=== PATIENT | female | born 1985 | race Caucasian/White ===

== ENCOUNTER → 2019-06-17 | Outpatient (CLI) | payer OTHER ==
--- NOTE | 2019-06-19 13:36 | US ---
EXAMINATION TYPE: US pelvic complete DATE OF EXAM: 06/17/2019 COMPARISON: NONE CLINICAL HISTORY: 34-year-old female N94.6 DYSMENORRHEA. Patient states having generalized cramping. TECHNIQUE: Transabdominal sonographic images of the pelvis were acquired. Date of LMP: 05/17/2019, FINDINGS: EXAM MEASUREMENTS: Uterus: 10.4 x 6.2 x 3.7 cm Endometrial Stripe: 0.8 cm Right Ovary: 2.6 x 1.9 x 1.4 cm Left Ovary: 3.1 x 1.5 x 1.3 cm 1. Uterus: Anteverted but retroflexed. No focal masses. 2. Endometrium: wnl 3. Right Ovary: wnl 4. Left Ovary: wnl 5. Bilateral Adnexa: No evident abnormality. 6. Posterior cul-de-sac: no free fluid 7. Cervix: wnl IMPRESSION: No specific abnormality of the pelvis on transabdominal scanning.
== END | disposition home or self-care (01) ==
LOC: RADUSWWP 16:09
PROVIDERS: ATTEND Family Medicine
DX: N94.6 Dysmenorrhea, unspecified (principal)
CPT/HCPCS: 76856

== ENCOUNTER 2021-07-05 00:27 | Emergency (ER) | payer OTHER ==
[2021-07-05 00:50] VITALS: BP 124/80; PULSE 80; RESP 20; TEMP 98.8
[2021-07-05] MEDS ORDERED: MAGNESIUM CITRATE 296 ML BOTTLE PO ONE (02:24)
[2021-07-05] MEDS ORDERED: SENNOSIDES-DOCUSATE SODIUM 1 EACH TAB PO STA (02:24)
[2021-07-05] MEDS ORDERED: GLYCERIN ADULT SUPPOSITORY 1 EACH RECTAL STA (02:24)
--- NOTE | 2021-07-05 02:25 | ED ---
Abdominal Pain HPI - General Chief Complaint: Abdominal Pain Stated Complaint: constipated, light-headed Time Seen by Provider: 07/05/21 02:21 Source: patient, RN notes reviewed, old records reviewed Mode of arrival: ambulatory Limitations: no limitations - History of Present Illness Initial Comments: This is a 36-year-old female DF for evaluation today. Patient is complaining of abdominal pain abdominal pain for 2 weeks with she may have some episodes of constipation as well. Patient is without fever no nausea or vomiting. Patient has history of cholecystectomy and history of . Patient did have a bowel movement 2 days ago MD Complaint: abdominal pain -: week(s) Location: diffuse Radiation: none Migration to: no migration Severity: moderate Severity scale (1-10): 5 Quality: fullness Consistency: intermittent Improves With: nothing Worsens With: nothing Context: other (none) Associated Symptoms: nausea Treatments Prior to Arrival: other (none) - Related Data Allergies Allergy/AdvReac Type Severity Reaction Status Date / Time acetaminophen [From Tylenol] Allergy Nausea & Verified 07/05/21 00:50 Vomiting & Diarrhea ibuprofen [From Motrin] Allergy Nausea & Verified 07/05/21 00:50 Vomiting & Diarrhea Penicillins Allergy Rash/Hives Verified 07/05/21 00:50 Review of Systems ROS Statement: Those systems with pertinent positive or pertinent negative responses have been documented in the HPI. ROS Other: All systems not noted in ROS Statement are negative. Past Medical History Additional Past Medical History / Comment(s): migraines, gestational diabetic. preeclampsia History of Any Multi-Drug Resistant Organisms: None Reported Past Surgical History: Section, Cholecystectomy Additional Past Surgical History / Comment(s): eye cyst Past Psychological History: Anxiety, Depression Smoking Status: Vaper Past Alcohol Use History: Occasional Past Drug Use History: None Reported General Exam Limitations: no limitations General appearance: alert, in no apparent distress Head exam: Present: atraumatic, normocephalic, normal inspection Eye exam: Present: normal appearance, PERRL, EOMI. Absent: scleral icterus, conjunctival injection, periorbital swelling ENT exam: Present: normal exam, mucous membranes moist Neck exam: Present: normal inspection. Absent: tenderness, meningismus, lymphadenopathy Respiratory exam: Present: normal lung sounds bilaterally. Absent: respiratory distress, wheezes, rales, rhonchi, stridor Cardiovascular Exam: Present: regular rate, normal rhythm, normal heart sounds. Absent: systolic murmur, diastolic murmur, rubs, gallop, clicks GI/Abdominal exam: Present: soft, tenderness, normal bowel sounds. Absent: distended, guarding, rebound, rigid Extremities exam: Present: normal inspection, full ROM, normal capillary refill. Absent: tenderness, pedal edema, joint swelling, calf tenderness Back exam: Present: normal inspection Neurological exam: Present: alert, oriented X3, CN II-XII intact Psychiatric exam: Present: normal affect, normal mood Skin exam: Present: warm, dry, intact, normal color. Absent: rash Course Vital Signs 07/05/21 00:47 Temperature 98.8 F Pulse Rate 80 Respiratory 20 Rate Blood Pressure 124/80 O2 Sat by Pulse 100 Oximetry - Reevaluation(s) Reevaluation #1: Medical record is reviewed Symptoms improved here in the ER Patient informed results and questions answered Medical Decision Making - Medical Decision Making 36 female to the emergency department for evaluation for abdominal pain positive for constipation. Patient will be placed on bowel regimen can be discharged home - Lab Data Lab Results 07/05/21 07/05/21 Range/Units 02:38 02:38 Urine Color Light Yellow Urine Appearance Clear (Clear) Urine pH 5.5 (5.0-8.0) Ur Specific [place] 1.009 (1.001-1.035) Urine Protein Negative (Negative) Urine Glucose (UA) Negative (Negative) Urine Ketones 1+ H (Negative) Urine Blood Trace H (Negative) Urine Nitrite Negative (Negative) Urine Bilirubin Negative (Negative) Urine Urobilinogen <2.0 (<2.0) mg/dL Ur Leukocyte Esterase Negative (Negative) Urine RBC 1 (0-5) /hpf Urine WBC <1 (0-5) /hpf Ur Squamous Epith Cells <1 (0-4) /hpf Urine Bacteria Rare H (None) /hpf Urine Mucus Rare H (None) /hpf Urine HCG, Qual Not Detected (Not Detectd) - Radiology Data Radiology results: report reviewed (X-ray KUB shows increased stool burn), image reviewed Disposition Clinical Impression: Constipation, Abdominal pain Disposition: HOME SELF-CARE Condition: Good Instructions (If sedation given, give patient instructions): Constipation (ED), Abdominal Pain (ED) Is patient prescribed a controlled substance at d/c from ED?: No Referrals: Geronimo Ferro MD [Primary Care Provider] - 1-2 days
[2021-07-05 03:03] LABS: Appearance,Urine Clear (Clear); Bacteria,Urine Rare /hpf; Bilirubin,Urine Negative (Negative); Blood,Urine Trace (Negative); Color,Urine Light Yellow; Glucose,Urine (UA) Negative (Negative); Ketones,Urine 1+ (Negative); Leukocyte Esterase,Urine Negative (Negative); Mucus,Urine Rare /hpf; Nitrite,Urine Negative (Negative); PH, Urine 5.5 (5.0-8.0); Protein,Urine Negative (Negative); RBC,Urine 1 /hpf (0-5); Specific Gravity,Urine 1.009 (1.001-1.035); Squamous Epithelial Cell,Urine <1 /hpf (0-4); Urobilinogen,Urine <2.0 mg/dL (<2.0); WBC,Urine <1 /hpf (0-5)
--- NOTE | 2021-07-05 03:27 | XR ---
EXAMINATION TYPE: XR KUB DATE OF EXAM: 07/05/2021 COMPARISON: NONE HISTORY: Constipation TECHNIQUE: 2 views upright FINDINGS: There is no sign of intestinal obstruction or pneumoperitoneum. Fecal pattern is normal. Th ere is no sign of a mass. There are no pathologic calcifications. Lung bases are clear. IMPRESSION: Nonacute abdomen.
== END 2021-07-05 03:16 | disposition home or self-care (01) ==
LOC: EC 00:27
DX: K59.00 Constipation, unspecified (principal); F41.9 Anxiety disorder, unspecified; F32.A Depression, unspecified; F17.290 Nicotine dependence, other tobacco product, uncomplicated; Z88.0 Allergy status to penicillin; Z88.6 Allergy status to analgesic agent; Z90.49 Acquired absence of other specified parts of digestive tract
CPT/HCPCS: 74018; 81001; 81025; 99284

== ENCOUNTER → 2021-10-18 | Outpatient (CLI) | payer OTHER ==
--- NOTE | 2021-10-18 15:20 | US ---
EXAMINATION TYPE: US extremity nonvasc mass LT DATE OF EXAM: 10/18/2021 COMPARISON: NONE CLINICAL HISTORY: LLE R22.40 Swelling. bruising on left lateral upper thigh since Jul. No known injur y. Hyperechoic area seen right under superficial bruising, probable hematomas IMPRESSION: As above
== END | disposition home or self-care (01) ==
LOC: RADUSWWP 14:56
PROVIDERS: ATTEND Family Medicine
DX: R22.40 Localized swelling, mass and lump, unspecified lower limb (principal)

== ENCOUNTER → 2022-03-31 | Outpatient (CLI) | payer OTHER ==
[2022-03-31 10:53] LABS: Basophils % (A) 0 %; Eosinophils # (A) 0.1 k/uL (0-0.7); Eosinophils % (A) 2 %; HGB 11.8 gm/dL (11.4-16.0); Hypochromasia Moderate; Lymphocytes # (A) 1.2 k/uL (1.0-4.8); Lymphocytes % (A) 28 %; MCH 28.9 pg (25.0-35.0); MCHC 31.8 g/dL (31.0-37.0); MCV 90.9 fL (80.0-100.0); Monocytes # (A) 0.3 k/uL (0-1.0); Monocytes % (A) 7 %; Neutrophils # (A) 2.5 k/uL (1.3-7.7); Neutrophils % (A) 60 %; Platelet Count 186 k/uL (150-450); RBC 4.07 m/uL (3.80-5.40); WBC 4.2 k/uL (3.8-10.6)
[2022-03-31 11:06] LABS: ALT 449 U/L (4-34); AST 312 U/L (14-36); African American GFR (CKD) >90 (>60 ml/min/1.73 sqM); Albumin 4.7 g/dL (3.5-5.0); Albumin/Globulin Ratio 1.4; Alkaline Phosphatase 59 U/L (38-126); Amylase 66 U/L (30-110); Anion Gap 12 mmol/L; Blood Urea Nitrogen 9 mg/dL (7-17); Calcium 8.9 mg/dL (8.4-10.2); Carbon Dioxide 25 mmol/L (22-30); Chloride 102 mmol/L (98-107); Globulin 3.3 g/dL; Glucose 82 mg/dL (74-99); Lipase 154 U/L (23-300); Non-African American GFR(CKD) >90 (>60 ml/min/1.73 sqM); Potassium 4.3 mmol/L (3.5-5.1); Sodium 139 mmol/L (137-145); Total Bilirubin 0.6 mg/dL (0.2-1.3)
--- NOTE | 2022-03-31 12:24 | CT ---
EXAMINATION TYPE: CT abdomen pelvis w con DATE OF EXAM: 03/31/2022 HISTORY: Epigastric pain CT DLP: 881mGycm Automated Exposure Control for Dose Reduction was Utilized. CONTRAST: CT scan of the abdomen and pelvis is performed with oral and with IV Contrast, patient injected with 70 mL of Isovue 300. COMPARISON: None. FINDINGS: LUNG BASES: No significant abnormality is appreciated. LIVER/GB: Gallbladder not seen and presumed surgically absent. No biliary dilatation identified. PANCREAS: No significant abnormality is seen. SPLEEN: No significant abnormality is seen. ADRENALS: No significant abnormality is seen. KIDNEYS: Symmetric cortical medullary uptake and excretion without hydronephrosis seen bilaterally. BOWEL: Oral contrast reached level of the hepatic flexure. No suspicious small or large bowel dilatat ion. Normal-appearing appendix extends medially from the cecum. UTERUS/ADNEXA: Anteverted uterus. Right ovary has a 2.2 cm round peripheral rim hyperdense central h ypodense lesion suspicious for corpus luteal cyst from recent ovulation. LYMPH NODES: No greater than 1cm abdominal or pelvic lymph nodes are appreciated. OSSEOUS STRUCTURES: No significant abnormality is seen. OTHER: No significant additional abnormality is seen. IMPRESSION: No bowel obstruction. No significant acute finding is seen to account for patient's clini yuliya symptoms.
== END | disposition home or self-care (01) ==
LOC: RADCTMAIN 10:05
PROVIDERS: ATTEND Family Medicine
DX: R10.13 Epigastric pain (principal)
CPT/HCPCS: 80053; 82150; 83690; 85025; 74177; 36415; Q9967 ×2

== ENCOUNTER 2022-04-11 17:33 | Emergency (ER) | payer OTHER ==
[2022-04-11 18:34] VITALS: RESP 16
[2022-04-11] MEDS ORDERED: METOCLOPRAMIDE 5 MG/ML 2 ML VIAL IVP STA (21:16)
[2022-04-11] MEDS ORDERED: KETOROLAC 15 MG/ML 1 ML VIAL IVP STA (21:16)
[2022-04-11] MEDS ORDERED: DEXAMETHASONE SOD PHOSPHATE 10 MG/ML 1 ML VIAL IV STA (21:16)
[2022-04-11] MEDS ORDERED: SODIUM CHLORIDE 0.9% 1,000 ML IV STA (21:16)
[2022-04-11] MEDS ORDERED: ONDANSETRON 4 MG/2 ML VIAL IVP STA (21:16)
[2022-04-11] MEDS ORDERED: HYDROmorphone 0.5 MG/0.5 ML SYRINGE IVP STA (22:15)
[2022-04-11] MEDS ORDERED: diphenhydrAMINE 50 MG/ML 1 ML VIAL IVP STA (22:15)
--- NOTE | 2022-04-11 23:40 | ED ---
Headache HPI - General Chief Complaint: Headache Stated Complaint: migrane Time Seen by Provider: 04/11/22 21:16 Mode of arrival: ambulatory Limitations: no limitations - History of Present Illness Initial Comments: Patient is a 36-year-old female with past medical history of migraines who presents to the emergency department with chief complaint of migraine. It started on Thursday. States this migraine feels typical of her previous migraines. Took her migraine medication with no relief. She denies fever, chills, upper respiratory symptoms, chest pain, shortness breath. - Related Data Previous Rx's Medication Instructions Recorded Metoclopramide [Reglan] 10 mg PO BID #14 tab 04/11/22 Allergies Allergy/AdvReac Type Severity Reaction Status Date / Time acetaminophen [From Tylenol] Allergy Nausea & Verified 04/11/22 18:34 Vomiting & Diarrhea ibuprofen [From Motrin] Allergy Nausea & Verified 04/11/22 18:34 Vomiting & Diarrhea Penicillins Allergy Rash/Hives Verified 04/11/22 18:34 Review of Systems ROS Statement: Those systems with pertinent positive or pertinent negative responses have been documented in the HPI. ROS Other: All systems not noted in ROS Statement are negative. Past Medical History Past Medical History: Thyroid Disorder Additional Past Medical History / Comment(s): migraines, gestational diabetic. preeclampsia History of Any Multi-Drug Resistant Organisms: None Reported Past Surgical History: Section, Cholecystectomy Additional Past Surgical History / Comment(s): eye cyst Past Psychological History: Anxiety, Depression Smoking Status: Vaper Past Alcohol Use History: Occasional Past Drug Use History: None Reported General Exam Limitations: no limitations General appearance: alert, in no apparent distress Head exam: Present: atraumatic, normocephalic, normal inspection Eye exam: Present: normal appearance, PERRL, EOMI. Absent: scleral icterus, conjunctival injection, periorbital swelling Respiratory exam: Present: normal lung sounds bilaterally. Absent: respiratory distress, wheezes, rales, rhonchi, stridor Cardiovascular Exam: Present: regular rate, normal rhythm, normal heart sounds. Absent: systolic murmur, diastolic murmur, rubs, gallop, clicks Neurological exam: Present: alert, oriented X3, CN II-XII intact Psychiatric exam: Present: normal affect, normal mood Skin exam: Present: warm, dry, intact, normal color. Absent: rash Course Vital Signs 04/11/22 18:32 Temperature 97.9 F Pulse Rate 69 Respiratory 16 Rate Blood Pressure 109/73 O2 Sat by Pulse 100 Oximetry Medical Decision Making - Medical Decision Making This is a 36-year-old female with migraine. Patient migraine cocktail with little relief. She was then given a dose of Dilaudid and tested for COVID-19. COVID-19 is detected. On reevaluation patient is feeling better. Results discussed with patient who will be discharged home with reglan. Dr. Guerra is my attending. - Lab Data Lab Results 04/11/22 Range/Units 22:31 Coronavirus (PCR) Detected A (Not Detectd) Disposition Clinical Impression: Migraine, COVID-19 Disposition: HOME SELF-CARE Condition: Good Instructions (If sedation given, give patient instructions): Coronavirus Disease 2019 (COVID-19), Migraine Headache (ED) Additional Instructions: Follow up with neurologist and primary care provider in one to 2 days. Return to the emergency department if you experience new, concerning, or worsening symptoms. Prescriptions: Metoclopramide [Reglan] 10 mg PO BID #14 tab Is patient prescribed a controlled substance at d/c from ED?: No Referrals: Ilene Berrios [Primary Care Provider] - 1-2 days
[2022-04-11 23:58] VITALS: BP 96/61; PULSE 64; TEMP 98.4
== END 2022-04-11 23:58 | disposition home or self-care (01) ==
LOC: EC 17:33
DX: U07.1 COVID-19 (principal); E07.9 Disorder of thyroid, unspecified; F41.9 Anxiety disorder, unspecified; F32.A Depression, unspecified; F17.290 Nicotine dependence, other tobacco product, uncomplicated; Z88.6 Allergy status to analgesic agent; Z88.0 Allergy status to penicillin
CPT/HCPCS: 87635; 99284; 96374; 96375 ×5; 96361; J1200; J1100; J2765; J2405; J1885; J1170

== ENCOUNTER → 2023-04-10 | Outpatient (CLI) | payer OTHER ==
--- NOTE | 2023-04-10 14:57 | US ---
EXAMINATION TYPE: US pelvis complete transvag DATE OF EXAM: 04/10/2023 COMPARISON: Pelvic ultrasound 06/17/2019 CLINICAL INDICATION: Female, 37 years old with history of R10.2 PELVIC AND PERINEAL PAIN; Pelvic pain , heavy menses, TECHNIQUE: Transvaginal (TV) and Transabdominal (TA) . Transabdominal sonographic images of the pel vis were acquired. Transvaginal sonographic images were medically necessary to better assess the fol lowing anatomy: right ovary Date of LMP: 03/28/23 EXAM MEASUREMENTS: Uterus: 12.0 x 4.0 x 5.9 cm Endometrial Stripe: 0.6 cm Right Ovary: 4.4 x 1.8 x 2.0 cm Left Ovary: 3.4 x 2.2 x 1.7 cm 1. Uterus: Anteverted heterogeneous 2. Endometrium: wnl 3. Right Ovary: complex area = 2.3 x 1.9 x 2.2cm 4. Left Ovary: follicles noted 5. Bilateral Adnexa: prominent vessels right adnexa 6. Posterior cul-de-sac: wnl Heterogenous uterus. Endometrium is within normal limits. Left ovary is unremarkable with follicles a nd measured. Complex cystic region within the right ovary measuring up to 2.3 cm. Prominent vessels w ithin the right adnexa. No free fluid. IMPRESSION: 1. Complex cystic 2.3 cm region within the right ovary. Favored to represent a hemorrhagic cyst. Fol low-up pelvic ultrasound in 6-12 weeks is recommended to ensure resolution. 2. Endometrium is within normal limits.
== END | disposition home or self-care (01) ==
LOC: RADUSWWP 13:34
PROVIDERS: ATTEND Obstetrics & Gynecology
DX: R10.2 Pelvic and perineal pain (principal); D21.9 Benign neoplasm of connective and other soft tissue, unspecified; N83.8 Other noninflammatory disorders of ovary, fallopian tube and broad ligament
CPT/HCPCS: 76830; 76856

== ENCOUNTER 2023-04-21 13:00 | Emergency (ER) | payer OTHER ==
[2023-04-21] MEDS ORDERED: SODIUM CHLORIDE 0.9% 1,000 ML IV STA (13:22)
[2023-04-21] MEDS ORDERED: METOCLOPRAMIDE 5 MG/ML 2 ML VIAL IVP STA (13:22)
[2023-04-21] MEDS ORDERED: diphenhydrAMINE 50 MG/ML 1 ML VIAL IVP STA (13:22)
[2023-04-21] MEDS ORDERED: DEXAMETHASONE SOD PHOSPHATE 10 MG/ML 1 ML VIAL IVP STA (13:22)
[2023-04-21] MEDS ORDERED: KETOROLAC 15 MG/ML 1 ML VIAL IVP STA (13:23)
--- NOTE | 2023-04-21 13:35 | ED ---
Headache HPI - General Chief Complaint: Headache Stated Complaint: Migraine Time Seen by Provider: 04/21/23 13:07 Source: patient, RN notes reviewed Mode of arrival: ambulatory Limitations: no limitations - History of Present Illness Initial Comments: This is a 37-year-old female who presents to the emergency department for a migraine. Patient has a long-standing history of migraines and states that she has tried multiple medications with no relief. She usually tries to sleep them off, however she's had a persistent migraine over the last 4 days. She would not describe this as the worst headache of her life and states that it is simply more consistent with one of her more severe migraines. Reports minor photosensitivity. Denies any nausea or vomiting. This involves most of her head. MD Complaint: headache, "migraine" - Related Data Previous Rx's Medication Instructions Recorded Metoclopramide [Reglan] 10 mg PO BID #14 tab 04/11/22 Ketorolac [Toradol] 10 mg PO Q6HR PRN #15 tab 04/21/23 Ondansetron Odt [Zofran Odt] 4 mg PO Q8HR PRN #15 tab 04/21/23 Allergies Allergy/AdvReac Type Severity Reaction Status Date / Time acetaminophen [From Tylenol] Allergy Nausea & Verified 04/11/22 18:34 Vomiting & Diarrhea ibuprofen [From Motrin] Allergy Nausea & Verified 04/11/22 18:34 Vomiting & Diarrhea Penicillins Allergy Rash/Hives Verified 04/11/22 18:34 Review of Systems ROS Statement: Those systems with pertinent positive or pertinent negative responses have been documented in the HPI. ROS Other: All systems not noted in ROS Statement are negative. Past Medical History Past Medical History: Osteoarthritis (OA), Thyroid Disorder Additional Past Medical History / Comment(s): migraines, gestational diabetic. preeclampsia History of Any Multi-Drug Resistant Organisms: None Reported Past Surgical History: Section, Cholecystectomy Additional Past Surgical History / Comment(s): eye cyst Past Psychological History: Anxiety, Depression Smoking Status: Vaper Past Alcohol Use History: Occasional Past Drug Use History: None Reported General Exam Limitations: no limitations General appearance: alert, in no apparent distress Head exam: Present: atraumatic, normocephalic, normal inspection Eye exam: Present: normal appearance, PERRL, EOMI. Absent: scleral icterus, conjunctival injection, periorbital swelling Respiratory exam: Present: normal lung sounds bilaterally. Absent: respiratory distress, wheezes, rales, rhonchi, stridor Cardiovascular Exam: Present: regular rate, normal rhythm, normal heart sounds. Absent: systolic murmur, diastolic murmur, rubs, gallop, clicks Neurological exam: Present: alert, oriented X3, CN II-XII intact Psychiatric exam: Present: normal affect, normal mood Skin exam: Present: warm, dry, intact, normal color. Absent: rash Course Vital Signs 04/21/23 04/21/23 13:03 14:47 Temperature 98.7 F 98.4 F Pulse Rate 76 68 Respiratory 16 18 Rate Blood Pressure 108/70 102/65 O2 Sat by Pulse 98 99 Oximetry Medical Decision Making - Medical Decision Making This is a 37-year-old female who presents to the emergency department for a headache. Was pt. sent in by a medical professional or institution? @ -No Did you speak to anyone other than the patient for history? @ -No Did you review nursing and triage notes? @ -Yes, and I agree, it is accurate with regards to the patient's symptoms. Were old charts reviewed? @ -No Differential Diagnosis? @ -Differential Headache: Migraine, tension, cluster, carbon monoxide, central venous thrombosis, pension karma temporal arteritis, acute closure glaucoma, intercranial hemorrhage, mastoiditis, sinusitis, head injury, this is not meant to be an all-inclusive list. EKG interpreted by me (3pts min.)? @ -Not obtained X-rays interpreted by me (1pt min.)? @ -Not obtained CT interpreted by me (1pt min.)? @ -Not obtained U/S interpreted by me (1pt. min.)? @ -Not obtained What testing was considered but not performed? (CT, X-rays, U/S, labs)? Why? @ -None What meds were considered but not given? Why? @ -None Did you discuss the management of the patient with other professionals? @ -No Did you reconcile home meds? @ -No Was smoking cessation discussed for >3mins.? @ -No Was critical care preformed (if so, how long)? @ -No Were there social determinants of health that impacted care today? How? (Homelessness, low income, unemployed, alcoholism, drug addiction, transportation, low edu. Level, literacy, decrease access to med. care, fci, rehab)? @ -No Was there de-escalation of care discussed even if they declined? (Discuss DNR or withdrawal of care, Hospice)? @ -No What co-morbidities impacted this encounter? (DM, HTN, Smoking, COPD, CAD, Cancer, CVA, Hep., AIDS, mental health diagnosis, sleep apnea, morbid obesity)? @ -Migraines Was patient admitted / discharged? @ -Discharged. Lab work obtained and found to be nonactionable. Patient treated with a migraine cocktail consisting of IV fluids, Toradol, Decadron, Reglan, and Benadryl. Afterwards she had improvement in symptoms and felt stable for discharge home. She was given prescriptions for Toradol and Zofran with dosing instructions reviewed for any residual symptoms. Otherwise advised close follow-up with her primary care provider. Undiagnosed new problem with uncertain prognosis? @ -None Drug Therapy requiring intensive monitoring for toxicity (Heparin, Nitro, Insulin, Cardizem)? @ -None Were any procedures done? @ -None Diagnosis/symptom? @ -Migraine Acute, or Chronic, or Acute on Chronic? @ -Acute Uncomplicated (without systemic symptoms) or Complicated (systemic symptoms)? @ -Uncomplicated Side effects of treatment? @ -None Exacerbation, Progression, or Severe Exacerbation] @ -Not applicable Poses a threat to life or bodily function? @ -No Return precautions reviewed in depth, the patient is instructed to return to the emergency department with any new, worsening, or concerning symptoms. Patient verbalized understanding. This case was discussed in detail with the attending ED physician, Dr. Roman. Presentation, findings, and treatment plan discussed in detail as well. - Lab Data Result diagrams: 04/21/23 13:32 04/21/23 13:32 Lab Results 04/21/23 04/21/23 Range/Units 13:32 13:32 WBC 10.3 (3.8-10.6) k/uL RBC 3.93 (3.80-5.40) m/uL Hgb 12.9 (11.4-16.0) gm/dL Hct 37.2 (34.0-46.0) % MCV 94.8 (80.0-100.0) fL MCH 32.8 (25.0-35.0) pg MCHC 34.6 (31.0-37.0) g/dL RDW 11.9 (11.5-15.5) % Plt Count 256 (150-450) k/uL MPV 8.0 Neutrophils % 77 % Lymphocytes % 16 % Monocytes % 3 % Eosinophils % 3 % Basophils % 1 % Neutrophils # 7.9 H (1.3-7.7) k/uL Lymphocytes # 1.6 (1.0-4.8) k/uL Monocytes # 0.3 (0-1.0) k/uL Eosinophils # 0.3 (0-0.7) k/uL Basophils # 0.1 (0-0.2) k/uL Sodium 139 (137-145) mmol/L Potassium 4.6 (3.5-5.1) mmol/L Chloride 105 (98-107) mmol/L Carbon Dioxide 24 (22-30) mmol/L Anion Gap 10 mmol/L BUN 13 (7-17) mg/dL Creatinine 0.70 (0.52-1.04) mg/dL Est GFR (CKD-EPI)AfAm >90 (>60 ml/min/1.73 sqM) Est GFR (CKD-EPI)NonAf >90 (>60 ml/min/1.73 sqM) Glucose 91 (74-99) mg/dL Calcium 9.1 (8.4-10.2) mg/dL Total Bilirubin 0.7 (0.2-1.3) mg/dL AST 38 H (14-36) U/L ALT 24 (4-34) U/L Alkaline Phosphatase 35 L (38-126) U/L Total Protein 7.9 (6.3-8.2) g/dL Albumin 4.2 (3.5-5.0) g/dL Disposition Clinical Impression: Migraine headache Disposition: HOME SELF-CARE Instructions (If sedation given, give patient instructions): Migraine Headache (ED) Additional Instructions: Return to the emergency department with any new, worsening, or concerning symptoms. You can try taking the Toradol as needed for pain relief. You can take the Zofran up to every 8 hours as needed for nausea and vomiting. Follow up with your primary care provider in 1-2 days. Prescriptions: Ketorolac [Toradol] 10 mg PO Q6HR PRN #15 tab PRN Reason: Pain Ondansetron Odt [Zofran Odt] 4 mg PO Q8HR PRN #15 tab PRN Reason: Nausea And Vomiting Is patient prescribed a controlled substance at d/c from ED?: No Referrals: Ilene Berrios [Primary Care Provider] - 1-2 days
[2023-04-21 13:39] LABS: Basophils # (A) 0.1 k/uL (0-0.2); Basophils % (A) 1 %; Eosinophils # (A) 0.3 k/uL (0-0.7); Eosinophils % (A) 3 %; HCT 37.2 % (34.0-46.0); HGB 12.9 gm/dL (11.4-16.0); Lymphocytes # (A) 1.6 k/uL (1.0-4.8); Lymphocytes % (A) 16 %; MCH 32.8 pg (25.0-35.0); MCHC 34.6 g/dL (31.0-37.0); MCV 94.8 fL (80.0-100.0); Monocytes # (A) 0.3 k/uL (0-1.0); Monocytes % (A) 3 %; Neutrophils # (A) 7.9 k/uL (1.3-7.7); Neutrophils % (A) 77 %; Platelet Count 256 k/uL (150-450); RBC 3.93 m/uL (3.80-5.40); RDW 11.9 % (11.5-15.5); WBC 10.3 k/uL (3.8-10.6)
[2023-04-21 14:01] LABS: ALT 24 U/L (4-34); African American GFR (CKD) >90 (>60 ml/min/1.73 sqM); Albumin 4.2 g/dL (3.5-5.0); Anion Gap 10 mmol/L; Blood Urea Nitrogen 13 mg/dL (7-17); Calcium 9.1 mg/dL (8.4-10.2); Carbon Dioxide 24 mmol/L (22-30); Chloride 105 mmol/L (98-107); Glucose 91 mg/dL (74-99); Non-African American GFR(CKD) >90 (>60 ml/min/1.73 sqM); Sodium 139 mmol/L (137-145)
[2023-04-21 14:36] LABS: AST 38 U/L (14-36); Alkaline Phosphatase 35 U/L (38-126); Potassium 4.6 mmol/L (3.5-5.1); Total Bilirubin 0.7 mg/dL (0.2-1.3)
[2023-04-21 14:37] LABS: Total Protein 7.9 g/dL (6.3-8.2)
[2023-04-21 15:13] VITALS: BP 102/65; PULSE 68; RESP 18; TEMP 98.4
== END 2023-04-21 15:12 | disposition home or self-care (01) ==
LOC: EC 13:00
DX: G43.909 Migraine, unspecified, not intractable, without status migrainosus (principal); F17.290 Nicotine dependence, other tobacco product, uncomplicated; Z88.0 Allergy status to penicillin; Z88.8 Allergy status to other drugs, medicaments and biological substances; Z86.59 Personal history of other mental and behavioral disorders
CPT/HCPCS: 36415; 80053; 85025; 99283; 96374; 96375 ×3; 96361; J1200; J1100; J2765; J1885

== ENCOUNTER → 2023-04-24 | Outpatient (CLI) | payer OTHER ==
--- NOTE | 2023-04-27 11:42 | MM ---
Reason for Exam: Screening (asymptomatic). Baseline mammogram. Patient History: Menarche at age 14. First Full-Term at age 29. Last menstrual period: 04/23/2023 Risk Values: Zohreh 5 year model risk: 0.3%. NCI Lifetime model risk: 11.3%. Prior Study Comparison: Patient's first Mammogram. Tissue Density: The breast tissue is heterogeneously dense. This may lower the sensitivity of mammography. Findings: Analyzed By CAD. 5 mm asymmetric nodular density seen best on the right MLO view just above the level of the 6.3 cm from the nipple. Additional views are recommended. No left-sided breast nodules seen. No suspicious calcifications present within either breast. Overall Assessment: Incomplete: need additional imaging evaluation, BI-RAD 0 Management: Diagnostic Mammogram of the right breast. . Patient should continue monthly self-breast exams. A clinical breast exam by your physician is recommended on an annual basis. This exam should not preclude additional follow-up of suspicious palpable abnormalities. Note on Zohreh scores and lifetime risk: 1. A Zohreh score greater than 3% is considered moderate risk. If this is the case, consider specialist referral to assess eligibility for a risk reducing agent. 2. If overall lifetime risk for the development of breast cancer is 20% or higher, the patient may qualify for future screening with alternating mammogram and breast MRI. Electronically signed and approved by: Branden Petty M.D. Radiologis
== END | disposition home or self-care (01) ==
LOC: RADMAMWWP 13:39
PROVIDERS: ATTEND Obstetrics & Gynecology
DX: Z12.31 Encounter for screening mammogram for malignant neoplasm of breast (principal)
CPT/HCPCS: 77067

== ENCOUNTER → 2023-05-11 | Outpatient (CLI) | payer OTHER ==
--- NOTE | 2023-05-11 11:30 | MM ---
Reason for Exam: Additional evaluation requested from abnormal screening. Last screening mammogram was performed less than 1 month ago. Patient History: Menarche at age 14. First Full-Term at age 29. Last menstrual period: 04/27/2023 Risk Values: Zohreh 5 year model risk: 0.3%. NCI Lifetime model risk: 11.3%. Prior Study Comparison: 04/24/2023 Bilateral MG screening mammo w CAD, [facility]. Tissue Density: Right: The breast tissue is heterogeneously dense. This may lower the sensitivity of mammography. Findings: Analyzed By CAD. Area of concern/asymmetry compresses out on spot compression imaging. No suspicious masses, calcifications or distortions. Overall Assessment: Negative, BI-RAD 1 Management: Screening Mammogram of both breasts in 1 year. Results were given to the patient verbally at the time of exam. Patient should continue monthly self-breast exams. A clinical breast exam by your physician is recommended on an annual basis. This exam should not preclude additional follow-up of suspicious palpable abnormalities. Note on Zohreh scores and lifetime risk: 1. A Zohreh score greater than 3% is considered moderate risk. If this is the case, consider specialist referral to assess eligibility for a risk reducing agent. 2. If overall lifetime risk for the development of breast cancer is 20% or higher, the patient may qualify for future screening with alternating mammogram and breast MRI. Electronically signed and approved by: Chaz Ruiz DO
== END | disposition home or self-care (01) ==
LOC: RADMAMWWP 11:00
PROVIDERS: ATTEND Obstetrics & Gynecology
DX: R92.331 Mammographic heterogeneous density, right breast (principal)
CPT/HCPCS: 77061; 77065

== ENCOUNTER 2023-07-14 13:51 | Emergency (ER) | payer OTHER ==
[2023-07-14 14:05] VITALS: BP 123/82; PULSE 100; RESP 20; TEMP 98
--- NOTE | 2023-07-14 14:16 | ED ---
Chest Pain HPI - General Source: patient, RN notes reviewed Mode of arrival: ambulatory Limitations: no limitations <Niall Amaya - Last Filed: 07/14/23 14:15> - General Source: RN notes reviewed, old records reviewed Mode of arrival: ambulatory Limitations: no limitations - History of Present Illness MD Complaint: chest pain, other (Palpitations occasional dyspnea) -: days(s) Onset: during rest, during exertion Pain Location: substernal Pain Radiation: none Severity: mild Severity scale (1-10): 3 Quality: tightness, heaviness Consistency: intermittent Improves With: nothing Worsens With: nothing Anginal Symptoms: dyspnea, sense of impending doom Other Symptoms: palpitations Treatments Prior to Arrival: none <Phil Guerra - Last Filed: 07/22/23 11:13> - General Chief Complaint: Chest Pain Stated Complaint: Cheat Pain,Left arm tightness Time Seen by Provider: 07/14/23 14:15 - History of Present Illness Initial Comments: 38-year-old female presents emergency department chief complaint of chest tightness. Patient states she woke up this morning states that she has been dealing with a migraine headache. She states that she had some chest tightness and noticed that her fingertips were discolored. She states that lasted approximately 4 hours. He has resolved. She denies anything like this in the past. Denies any nausea vomiting she states that she does not take any oral pills for her migraines that nothing is working the past she states she had recent injections of her neck for them. Denies prior cardiac disease denies control denies leg pain or leg swelling (Niall Amaya) This is a 38-year-old female for some chest pain and chest tightness recent migraine headache and palpitations. Patient is concerned that her symptoms may be correlated. But she denies current anxiety. No new change of medications or drug abuse (Phil Guerra) - Related Data Previous Rx's Medication Instructions Recorded Metoclopramide [Reglan] 10 mg PO BID #14 tab 04/11/22 Ketorolac [Toradol] 10 mg PO Q6HR PRN #15 tab 04/21/23 Ondansetron Odt [Zofran Odt] 4 mg PO Q8HR PRN #15 tab 04/21/23 Allergies Allergy/AdvReac Type Severity Reaction Status Date / Time acetaminophen [From Tylenol] Allergy Nausea & Verified 04/11/22 18:34 Vomiting & Diarrhea ibuprofen [From Motrin] Allergy Nausea & Verified 04/11/22 18:34 Vomiting & Diarrhea Penicillins Allergy Rash/Hives Verified 04/11/22 18:34 Review of Systems ROS Other: All systems not noted in ROS Statement are negative. <Niall Amaya - Last Filed: 07/14/23 14:15> ROS Other: All systems not noted in ROS Statement are negative. <Phil Guerra - Last Filed: 07/22/23 11:13> ROS Statement: Those systems with pertinent positive or pertinent negative responses have been documented in the HPI. EKG Findings - EKG Comments: EKG Findings:: EKG sinus 98 AR 120 QRS 91, QTc 401 - EKG Results: EKG: interpreted by ERMD <Phil Guerra - Last Filed: 07/22/23 11:13> Past Medical History Past Medical History: Osteoarthritis (OA), Thyroid Disorder Additional Past Medical History / Comment(s): migraines, gestational diabetic. preeclampsia History of Any Multi-Drug Resistant Organisms: None Reported Past Surgical History: Section, Cholecystectomy Additional Past Surgical History / Comment(s): eye cyst Past Psychological History: Anxiety, Depression Smoking Status: Vaper Past Alcohol Use History: Occasional Past Drug Use History: None Reported <Niall Amaya - Last Filed: 07/14/23 14:15> General Exam Limitations: no limitations <Niall Amaya Daylin - Last Filed: 07/14/23 14:15> General appearance: alert, in no apparent distress, anxious Head exam: Present: atraumatic, normocephalic, normal inspection Eye exam: Present: normal appearance, PERRL, EOMI. Absent: scleral icterus, conjunctival injection, periorbital swelling ENT exam: Present: normal exam, mucous membranes moist Neck exam: Present: normal inspection. Absent: tenderness, meningismus, lymphadenopathy Respiratory exam: Present: normal lung sounds bilaterally. Absent: respiratory distress, wheezes, rales, rhonchi, stridor Cardiovascular Exam: Present: regular rate, normal rhythm, normal heart sounds. Absent: systolic murmur, diastolic murmur, rubs, gallop, clicks GI/Abdominal exam: Present: soft, normal bowel sounds. Absent: distended, tenderness, guarding, rebound, rigid Extremities exam: Present: normal inspection, full ROM, normal capillary refill. Absent: tenderness, pedal edema, joint swelling, calf tenderness Back exam: Present: normal inspection Neurological exam: Present: alert, oriented X3, CN II-XII intact Psychiatric exam: Present: normal affect, normal mood Skin exam: Present: warm, dry, intact, normal color. Absent: rash <Phil Guerra - Last Filed: 07/22/23 11:13> - General Exam Comments Initial Comments: Visual Physical Exam Vital signs reviewed General: Well-appearing, nontoxic, no acute distress. Head: Normocephalic, atraumatic Eyes: PERRLA, EOMI ENT: Airway patent Chest: Nonlabored breathing Skin: No visual rash, normal skin tone Neuro: Alert and oriented 3 Musculoskeletal: No gross abnormalities (Niall Amaya) Course <Phil Guerra - Last Filed: 07/22/23 11:13> Vital Signs 07/14/23 13:53 Temperature 98 F Pulse Rate 100 Respiratory 20 Rate Blood Pressure 123/82 O2 Sat by Pulse 99 Oximetry - Reevaluation(s) Reevaluation #1: Medical records are reviewed (Phil Guerra) Reevaluation #2: Patient symptoms are improved (Phil Guerra) Reevaluation #3: Patient reported results and questions answered Studies Chest x-ray is negative for acute disease (Phil Guerra) Reevaluation #4: Was pt. sent in by a medical professional or institution (, PA, [employer] REM[employer] SENSING SCIENTIST, urgent care, hospital, or skilled nursing...) When possible be specific @ -no Did you speak to anyone other than the patient for history (EMS, parent, family, police, friend...)? What history was obtained from this source @ -no Did you review nursing and triage notes (agree or disagree)? Why? @ -agree Are old charts reviewed (outside hosp., previous admission, EMS record, old EKG, old radiological studies, urgent care reports/EKG's, skilled nursing records)? Report findings @ -yes Differential Diagnosis (chest pain, altered mental status, abdominal pain women, abdominal pain men, vaginal bleeding, weakness, fever, dyspnea, syncope, headache, dizziness, GI bleed, back pain, seizure, CVA, palpatations, mental health, musculoskeletal)? @ -prior EKG interpreted by me (3pts min.). @ -yes X-rays interpreted by me (1pt min.). @ -yes negative for acute disease CT interpreted by me (1pt min.). @ -no U/S interpreted by me (1pt. min.). @ -no What testing was considered but not performed or refused? (CT, X-rays, U/S, labs)? Why? @ -none What meds were considered but not given or refused? Why? @ -none Did you discuss the management of the patient with other professionals (professionals i.e. , PA, [employer]ING SCIENTIST, lab, RT, psych nurse, social science analyst, lead based paint technician, teacher, licensed loan officer, egg caser)? Give summary @ -no Was smoking cessation discussed for >3mins.? @ -no Was critical care preformed (if so, how long)? @ -no Were there social determinants of health that impacted care today? How? (Homelessness, low income, unemployed, alcoholism, drug addiction, transportation, low edu. Level, literacy, decrease access to med. care, assisted, rehab)? @ -none Was there de-escalation of care discussed even if they declined (Discuss DNR or withdrawal of care, Hospice)? DNR status @ -no What co-morbidities impacted this encounter? (DM, HTN, Smoking, COPD, CAD, Cancer, CVA, ARF, Chemo, Hep., AIDS, mental health diagnosis, sleep apnea, morbid obesity)? @ -none Was patient admitted / discharged? Hospital course, mention meds given and route, prescriptions, significant lab abnormalities, going to OR and other pertinent info. @ - 38 female to the ER for evaluation today. Patient presents today for evaluation regards to elevated heart rate palpitations with concerns, patient does have concerns for infection or other causes of why he is not adequately feeling well. The patient has no findings here in the ER and can be discharged home Discharge Undiagnosed new problem with uncertain prognosis? @ -no Drug Therapy requiring intensive monitoring for toxicity (Heparin, Nitro, Insulin, Cardizem)? @ -no Were any procedures done? @ -no Diagnosis/symptom? @ -Palpitations Acute, or Chronic, or Acute on Chronic? @ -Acute Uncomplicated (without systemic symptoms) or Complicated (systemic symptoms)? @ -Complicated Side effects of treatment? @ -no Exacerbation, Progression, or Severe Exacerbation? @ -exacerbation Poses a threat to life or bodily function? How? (Chest pain, [place], [place], pneumonia, PE, COPD, DKA, ARF, appy, cholecystitis, CVA, Diverticulitis, Homicidal, Suicidal, threat to staff... and all critical care pts) @ -no (Phil Guerra) Reevaluation #5: Differential Chest Pain: Stable Angina, Unstable Angina, STEMI, NSTEMI Aortic Dissection, Pneumothorax, Musculoskeletal, Esophageal Spasm GERD, Cholecystitis, Pancreatitis, Zoster, this is not meant to be an all-inclusive list. Differential Palpitations Ventricular arrhythmias, atrial arrhythmias, myocardial infarction, anemia, thyrotoxicosis, electrolyte imbalance, hypokalemia, pulmonary embolism, pulmonary disease, drugs, alcohol, anxiety, stress.... This is not meant to be an all-inclusive list. (Phil Guerra) Chest Pain MDM <Niall Amaya - Last Filed: 07/14/23 14:15> <Phil Guerra - Last Filed: 07/22/23 11:13> - MDM I completed the quick note portion of this chart signed Niall Amaya PA-C (Niall Amaya) 38 female to the ER for evaluation today. Patient presents today for evaluation regards to elevated heart rate palpitations with concerns, patient does have concerns for infection or other causes of why he is not adequately feeling well. The patient has no findings here in the ER and can be discharged home (Phil Guerra) Disposition <Niall Amaya - Last Filed: 07/14/23 14:15> Is patient prescribed a controlled substance at d/c from ED?: No Time of Disposition: 16:15 <Phil Guerra - Last Filed: 07/22/23 11:13> Clinical Impression: Atypical chest pain, Chest pain, Palpitations Disposition: HOME SELF-CARE Condition: Good Instructions (If sedation given, give patient instructions): Chest Pain (ED) Referrals: Ilene Berrios [Primary Care Provider] - 1-2 days
[2023-07-14 14:28] LABS: Basophils # (A) 0.1 k/uL (0-0.2); Basophils % (A) 1 %; Eosinophils # (A) 0.1 k/uL (0-0.7); Eosinophils % (A) 1 %; HGB 13.9 gm/dL (11.4-16.0); Lymphocytes # (A) 1.4 k/uL (1.0-4.8); Lymphocytes % (A) 22 %; MCH 31.3 pg (25.0-35.0); MCHC 33.8 g/dL (31.0-37.0); MCV 92.5 fL (80.0-100.0); Mean Platelet Volume 7.9; Monocytes # (A) 0.2 k/uL (0-1.0); Monocytes % (A) 4 %; Neutrophils # (A) 4.4 k/uL (1.3-7.7); Neutrophils % (A) 71 %; Platelet Count 250 k/uL (150-450); RBC 4.44 m/uL (3.80-5.40); RDW 11.9 % (11.5-15.5); WBC 6.2 k/uL (3.8-10.6)
--- NOTE | 2023-07-14 14:29 | XR ---
EXAMINATION TYPE: XR chest 2V DATE OF EXAM: 07/14/2023 COMPARISON: 06/23/2019 HISTORY: Chest pain TECHNIQUE: Frontal and lateral views of the chest are obtained. FINDINGS: There is no focal air space opacity. No evidence for pneumothorax. No pleural effusion. The cardiac silhouette size is within normal limits. The osseous structures are grossly intact. IMPRESSION: 1. No acute cardiopulmonary process.
[2023-07-14 14:39] LABS: ALT 42 U/L (4-34); AST 37 U/L (14-36); African American GFR (CKD) >90 (>60 ml/min/1.73 sqM); Albumin 4.6 g/dL (3.5-5.0); Alkaline Phosphatase 47 U/L (38-126); Anion Gap 9 mmol/L; Blood Urea Nitrogen 13 mg/dL (7-17); Calcium 9.5 mg/dL (8.4-10.2); Carbon Dioxide 25 mmol/L (22-30); Chloride 104 mmol/L (98-107); Glucose 135 mg/dL (74-99); Non-African American GFR(CKD) >90 (>60 ml/min/1.73 sqM); Potassium 3.9 mmol/L (3.5-5.1); Sodium 138 mmol/L (137-145); Total Bilirubin 0.5 mg/dL (0.2-1.3); Total Protein 8.3 g/dL (6.3-8.2)
[2023-07-14 14:48] LABS: INR 1.1 (<1.2); Partial Thromboplastin Time 28.1 sec (22.0-30.0); Prothrombin Time 12.2 sec (10.0-12.5)
== END 2023-07-14 16:26 | disposition home or self-care (01) ==
LOC: EC 13:51
DX: R07.89 Other chest pain (principal); R00.2 Palpitations; F17.290 Nicotine dependence, other tobacco product, uncomplicated; Z86.59 Personal history of other mental and behavioral disorders; Z88.0 Allergy status to penicillin; Z88.6 Allergy status to analgesic agent
CPT/HCPCS: 36415; 71046; 80053; 83735; 84484; 85025; 85379; 85610; 85730; 93005; 99285

== ENCOUNTER → 2023-07-17 | Outpatient (CLI) | payer OTHER ==
--- NOTE | 2023-07-17 13:21 | CT ---
EXAMINATION TYPE: CT sinus wo con DATE OF EXAM: 07/17/2023 COMPARISON: None HISTORY: 38-year-old female J3 4.1, cyst and mucocele of nose and nasal sinus, sinusitis CT DLP: 520.3 mGycm Automated exposure control for dose reduction was used. TECHNIQUE: Noncontrast axial views of the paranasal sinuses were obtained. Coronal and sagittal recon structions performed. FINDINGS: PARANASAL SINUSES: There is mild mucosal thickening throughout the posterior ethmoid air cells. Additional mild mucosal thickening along the floors of the bilateral maxillary sinuses. There is either focal 1.0 cm area of mucosal thickening or a cyst at the right maxillary infundibulum , referred to coronal image 19. Otherwise, frontal and sphenoid sinuses are well pneumatized. There are no air-fluid levels. Reactive chyna- osteogenesis is not seen. There is no destruction of the osseous robbins of the paranasal sinuses. THE NASAL CAVITY: The left osteomeatal complex is patent. There is minimal undulation of the nasal septum. Right-sided conchal bullosa. The imaged brain and orbits are normal in appearance. The visualized mastoid air cells and middle ear cavities are well pneumatized. Reformatted images confirm above findings. IMPRESSION: 1. Mild mucosal thickening within the posterior ethmoid air cells and bilateral floors of the maxilla ry sinuses. 2. Either a 1.0 cm focal area of mucosal thickening or a cyst/polyp at the right maxillary infundibul um, coronal image 19. 3. Right-sided conchal bullosa.
== END | disposition home or self-care (01) ==
LOC: RADCTMAIN 12:27
PROVIDERS: ATTEND Otolaryngology Sleep Medicine
DX: J34.89 Other specified disorders of nose and nasal sinuses (principal); J34.1 Cyst and mucocele of nose and nasal sinus
CPT/HCPCS: 70486

== ENCOUNTER 2024-10-15 18:16 | Emergency (ER) | payer OTHER ==
[2024-10-15 18:21] VITALS: RESP 18
[2024-10-15] MEDS: SODIUM CHLORIDE 0.9% 1,000 ML IV STA (19:14)
[2024-10-15] MEDS: METOCLOPRAMIDE 5 MG/ML 2 ML VIAL IVP STA (19:15)
[2024-10-15] MEDS: diphenhydrAMINE 50 MG/ML 1 ML VIAL IVP STA (19:16)
[2024-10-15] MEDS: KETOROLAC 15 MG/ML 1 ML VIAL IVP STA (19:17)
[2024-10-15] MEDS: DEXAMETHASONE SOD PHOSPHATE 10 MG/ML 1 ML VIAL IVP STA (19:18)
--- NOTE | 2024-10-15 19:42 | ED ---
Headache HPI - General Chief Complaint: Headache Stated Complaint: Chest Pain/Migraine Time Seen by Provider: 10/15/24 18:27 Mode of arrival: ambulatory Limitations: no limitations - History of Present Illness Initial Comments: 39-year-old female presenting with chief complaint of migraine. Patient has history of migraines. This 1 has been ongoing for the last 6 days. She states that it shoots from her forehead to the back of her head. She has been taking tramadol which has not helped her pain. She admits to blurred vision, nausea, neck pain. Denies vomiting, dizziness, hearing changes, numbness, tingling, weakness. - Related Data Previous Rx's Medication Instructions Recorded Metoclopramide [Reglan] 10 mg PO BID #14 tab 04/11/22 Ketorolac [Toradol] 10 mg PO Q6HR PRN #15 tab 04/21/23 Ondansetron Odt [Zofran Odt] 4 mg PO Q8HR PRN #15 tab 04/21/23 Allergies Allergy/AdvReac Type Severity Reaction Status Date / Time acetaminophen [From Tylenol] Allergy Nausea & Verified 10/15/24 18:21 Vomiting & Diarrhea ibuprofen [From Motrin] Allergy Nausea & Verified 10/15/24 18:21 Vomiting & Diarrhea Penicillins Allergy Rash/Hives Verified 10/15/24 18:21 Review of Systems ROS Statement: Those systems with pertinent positive or pertinent negative responses have been documented in the HPI. ROS Other: All systems not noted in ROS Statement are negative. Past Medical History Past Medical History: Osteoarthritis (OA), Thyroid Disorder Additional Past Medical History / Comment(s): migraines, gestational diabetic. preeclampsia History of Any Multi-Drug Resistant Organisms: None Reported Past Surgical History: Section, Cholecystectomy Additional Past Surgical History / Comment(s): eye cyst Past Psychological History: Anxiety, Depression Smoking Status: Vaper Past Alcohol Use History: Occasional Past Drug Use History: None Reported General Exam Limitations: no limitations General appearance: alert, in no apparent distress Head exam: Present: atraumatic, normocephalic, normal inspection Eye exam: Present: normal appearance, EOMI. Absent: periorbital swelling Neck exam: Present: normal inspection. Absent: meningismus Respiratory exam: Absent: respiratory distress Cardiovascular Exam: Present: regular rate Neurological exam: Present: alert, oriented X3 Expanded Patient oriented to: Present: person, place, time Eye Response: (4) open spontaneously Motor Response: (6) obeys commands Verbal Response: (5) oriented Miguel Total: 15 Psychiatric exam: Present: normal affect, normal mood Skin exam: Present: warm, dry, normal color Course Vital Signs 10/15/24 18:19 Temperature 98 F Pulse Rate 86 Respiratory 18 Rate Blood Pressure 119/82 O2 Sat by Pulse 98 Oximetry Disposition Clinical Impression: Migraine headache Disposition: HOME SELF-CARE Condition: Good Instructions (If sedation given, give patient instructions): Acute Headache (ED) Additional Instructions: Follow-up with PCP. Report back to ER with any new or worsening symptoms. Is patient prescribed a controlled substance at d/c from ED?: No Referrals: Jacques Ruiz [Primary Care Provider] - 1-2 days Time of Disposition: 21:25
[2024-10-15] MEDS: MORPHINE SULFATE 4 MG/ML SYRINGE IVP STA (20:45)
[2024-10-15 21:41] VITALS: BP 115/77; PULSE 72; TEMP 98.3
== END 2024-10-15 21:41 | disposition home or self-care (01) ==
LOC: SUPCPDRO 18:16 → EC 18:16
DX: G43.909 Migraine, unspecified, not intractable, without status migrainosus (principal); F17.290 Nicotine dependence, other tobacco product, uncomplicated; Z88.0 Allergy status to penicillin; Z88.6 Allergy status to analgesic agent
CPT/HCPCS: 99284; 96374; 96375; 96361; J2270; J1200; J1100; J2765; J1885